=== PATIENT | male | born 1985 | race Caucasian/White ===

== ENCOUNTER 2018-03-21 01:54 | Emergency (ER) | payer OTHER ==
[~2018-03-21] VITALS: Ht 182.9 cm; Wt 90.7 kg
[2018-03-21 02:00] VITALS: BP_SYST 138
[2018-03-21] MEDS ORDERED: SULFAMETHOXAZOLE/TRIMETHOPR DS 1 TABLET PO ONE (02:30)
[2018-03-21] MEDS ORDERED: CEPHALEXIN 125 MG/5 ML, 100 ML BTL PO ONE (02:30)
[2018-03-21] MEDS ORDERED: CEPHALEXIN 500 MG CAPSULE ONE (02:45)
[2018-03-21 02:53] VITALS: BP_SYST 138
[2018-03-21] MEDS ORDERED: CEPHALEXIN 500 MG CAPSULE PO ONE (03:00)
== END 2018-03-21 02:53 ==
LOC: SED 01:54
DX: S40.862A Insect bite (nonvenomous) of left upper arm, initial encounter (principal); S40.861A Insect bite (nonvenomous) of right upper arm, initial encounter; S80.862A Insect bite (nonvenomous), left lower leg, initial encounter; S80.861A Insect bite (nonvenomous), right lower leg, initial encounter; S30.861A Insect bite (nonvenomous) of abdominal wall, initial encounter; L02.413 Cutaneous abscess of right upper limb; L02.419 Cutaneous abscess of limb, unspecified; L02.211 Cutaneous abscess of abdominal wall; W57.XXXA Bitten or stung by nonvenomous insect and other nonvenomous arthropods, initial encounter; Y93.89 Activity, other specified; Y92.89 Other specified places as the place of occurrence of the external cause; Y99.8 Other external cause status
CPT/HCPCS: 99283